=== PATIENT | female | born 1960 | race Two or more races ===

== ENCOUNTER 2018-03-21 08:19 | Outpatient (CLI) | payer OTHER | END 2018-03-21 10:22 | disposition home or self-care (01) | LOC: RAD 501 08:19 | DX: M16.11 Unilateral primary osteoarthritis, right hip (principal) ==

== ENCOUNTER 2018-07-14 11:38 | Outpatient (CLI) | payer OTHER | END 2018-07-14 11:56 | disposition home or self-care (01) | LOC: RAD 501 11:38 | DX: S62.316A Displaced fracture of base of fifth metacarpal bone, right hand, initial encounter for closed fracture (principal); S92.352A Displaced fracture of fifth metatarsal bone, left foot, initial encounter for closed fracture ==

== ENCOUNTER → 2018-08-19 | Outpatient (CLI) | payer OTHER | END | disposition home or self-care (01) | LOC: NUCLEAR 12:55 | DX: C50.412 Malignant neoplasm of upper-outer quadrant of left female breast (principal); E28.319 Asymptomatic premature menopause ==

== ENCOUNTER 2018-10-02 07:42 | Outpatient (CLI) | payer OTHER | END 2018-10-02 07:51 | disposition home or self-care (01) | LOC: SONOGRAMA 07:42 | DX: K80.20 Calculus of gallbladder without cholecystitis without obstruction (principal) ==

== ENCOUNTER → 2021-02-21 | Outpatient (CLI) | payer OTHER | END | disposition home or self-care (01) | LOC: NUCLEAR 10:00 | DX: M81.0 Age-related osteoporosis without current pathological fracture (principal) ==

== ENCOUNTER 2022-03-09 08:28 | Outpatient (CLI) | payer OTHER | END 2022-03-09 08:30 | disposition home or self-care (01) | LOC: SONOGRAMA 08:28 | PROVIDERS: ATTEND Otolaryngology Otology & Neurotology | DX: K76.0 Fatty (change of) liver, not elsewhere classified (principal) ==

== ENCOUNTER 2022-10-12 11:48 | Outpatient (CLI) | payer OTHER | END 2022-10-12 11:59 | disposition home or self-care (01) | LOC: RAD 11:48 | PROVIDERS: ATTEND Internal Medicine Gastroenterology | DX: R10.9 Unspecified abdominal pain (principal) ==

== ENCOUNTER 2023-05-14 13:48 | Outpatient (CLI) | payer OTHER | END 2023-05-14 13:50 | disposition home or self-care (01) | LOC: NUCLEAR 13:48 | PROVIDERS: ATTEND Internal Medicine | DX: M85.80 Other specified disorders of bone density and structure, unspecified site (principal); C50.412 Malignant neoplasm of upper-outer quadrant of left female breast ==

== ENCOUNTER 2025-06-14 10:02 | Outpatient (CLI) | payer OTHER | END 2025-06-14 10:14 | disposition home or self-care (01) | LOC: RAD 10:02 | PROVIDERS: ATTEND Obstetrics & Gynecology | DX: Z01.811 Encounter for preprocedural respiratory examination (principal) ==

== ENCOUNTER 2025-06-23 11:00 | Day surgery (SDC) | payer OTHER ==
[~2025-06-23 11:00] MED LIST: LEVO-T75 MCG; TENORMIN50 M1
[2025-06-23] MEDS ORDERED: POVIDONE-IODINE 118 ML BOTT TOP ONE (15:33)
[2025-06-23] MEDS ORDERED: PROMETHAZINE HCL 50 MG/ML AMPUL IM PRN (22:00)
== END 2025-06-23 20:35 | disposition home or self-care (01) ==
LOC: CIR.AMB 11:00
PROVIDERS: ATTEND Obstetrics & Gynecology
DX: N84.0 Polyp of corpus uteri (principal)

== ENCOUNTER → 2025-09-03 09:40 | Outpatient (CLI) | payer OTHER | END | disposition home or self-care (01) | LOC: NUCLEAR 09:40 | DX: M85.50 Aneurysmal bone cyst, unspecified site (principal); M81.0 Age-related osteoporosis without current pathological fracture ==